=== PATIENT | female | born 1985 | race African-American/Black ===

== ENCOUNTER 2020-10-12 10:39 | Emergency (ER) | payer MEDICAID, SELFPAY ==
--- NOTE | ~2020-10-12 | US_ITS ---
EXAMINATION: US ABDOMEN LIMITED CLINICAL INFORMATION: Right upper quadrant pain. COMPARISON: None TECHNIQUE: Real-time imaging of the right upper quadrant abdominal viscera. FINDINGS: PANCREAS: Pancreas is normal in size and contour and echogenicity. There is no pancreatic ductal distention or retroperitoneal effusion. LIVER: The liver is within normal size and smooth in contour. The parenchyma is normal in echogenicity and homogeneous. There is no parenchymal lesion or intrahepatic ductal dilatation. GALLBLADDER: Normal. The gallbladder is physiologically distended without evidence of stones, sludge, polyps, wall thickening or pericholecystic fluid. Negative sonographic Rosales's sign. COMMON BILE DUCT: Normal in caliber measuring 0.3 cm in diameter. RIGHT KIDNEY: Normal. No hydronephrosis. No renal calculi or focal parenchymal lesions. The kidney measures 11.8 cm in maximum dimension. FREE FLUID: None. US/US abdomen limited IMPRESSION: Normal study.
--- NOTE | ~2020-10-12 | US_ITS ---
EXAMINATION: US OBSTETRICAL ULTRASOUND CLINICAL INFORMATION: Lower abdominal pain. Positive test. COMPARISON: None. LMP: 08/08/2020. Gestational age by maternal dates is 9 weeks and 2 days. Estimated date of delivery by maternal dates is 05/15/2021. TECHNIQUE: Routine transabdominal pelvic imaging was performed. FINDINGS: There is a single intrauterine gestational sac with visible yolk sac, embryo/fetus, and cardiac activity. There is no significant subchorionic hemorrhage or hematoma. The gestational sac is low-lying in the lower uterine segment. There is no vaginal bleeding hence, no transvaginal ultrasound performed. HR: 170 beats per minute. CRL (crown-rump length): 2.48 cm . MAXWELL (estimated date of delivery): 05/15/2021. MATERNAL ADNEXA: The right maternal ovary measures 2.9 x 1.7 x 1.6 cm. It appears unremarkable. The left maternal ovary measures 4.9 x 2.5 x 2.8 cm. There is an anechoic cyst measuring 2.2 x 2.0 x 2.4 cm. There is no significant maternal adnexal mass. No maternal pelvic ascites. US/US OB <= 14 weeks fetus IMPRESSION: 1. Single intrauterine gestation with ultrasound gestational age of 9 weeks and 2 days. 2. Estimated date of delivery is 05/15/2021 +/- 4 days. 3. No maternal adnexal mass or pelvic ascites.
[2020-10-12 10:53] VITALS: BP 126/59; PULSE 73; RESP 18; TEMP 37.1; O2SAT 98; BMI 34.3
--- NOTE | 2020-10-12 12:24 | ED_ITS ---
HPI - Abdominal Pain General Chief Complaint: Abdominal Pain Stated Complaint: Abd pain/ 2 and a half months Time Seen by Provider: 10/12/20 12:21 Source: patient Mode of arrival: ambulatory Limitations: no limitations History of Present Illness MD elicited complaint: abdominal pain Onset (ago): week(s) (2) Pain Consistency: intermittent Location: RUQ Severity: mild Quality: cramping Radiation: none Migration to: no migration Exacerbating factors: movement Relieving factors: nothing Context: other (also found out she was yesterday at [facility]) Associated symptoms: nausea Related Data Previous Rx's Medication Instructions Recorded nitrofurantoin 100 mg PO BID 7 Days #14 cap 10/12/20 monohydrate/macrocrystals 100 mg capsule (Macrobid) Allergies Allergy/AdvReac Type Severity Reaction Status Date / Time No Known Allergies Allergy Verified 10/12/20 10:52 [No Known Allergies*] Review of Systems Review of Systems Constitutional : No Weight loss, No Fever, No Chills ENT/Mouth : No sore throat, No Rhinorrhea Eyes: No Swelling, No Redness Cardiovascular : No Chest Pain, No SOB, NoEdema Respiratory : No Cough, No Sputum, No Wheezing Gastrointestinal : pos Nausea, no Vomiting, no Diarrhea, positive abdominal Pain, No Hematochezia, No Melena Genitourinary : No Dysuria, No Urinary Frequency, No Hematuria, No Urgency Musculoskeletal : No joint pain, No Myalgias, No Joint Swelling Skin : No Skin Lesions, No rash Neuro : No Weakness, No Numbness, No Dizziness, No Headache Psych : No Anxiety/Panic, No Depression Heme/Lymph: No Bruising, No Lymphadenopathy Endocrine : No Polyuria, No Polydipsia All other systems reviewed and are negative. Physical Exam Vital Signs: Vital Signs: Last Vital Signs Temp 98.7 F 10/12/20 10:53 Pulse 55 10/12/20 12:56 Resp 18 10/12/20 12:56 BP 115/63 10/12/20 12:56 Pulse Ox 95 10/12/20 12:56 Body Mass Index 34.3 Appearance: Alert. Oriented X3. No acute distress. Eyes: Pupils equal, round and reactive to light. ENT: Pharynx normal. Neck: Normal inspection. Neck supple. CVS: Normal heart rate and rhythm. Pulses normal. Respiratory: No respiratory distress. Breath sounds normal. Abdomen: Soft and mild RUQ ttp pos ray's sign but no rebound or guarding Skin: Skin warm and dry. Normal skin color. Normal skin turgor. Extremities: No lower extremity edema. No calf ttp Neuro: Oriented X 3. No motor deficit. No sensory deficit. Course Course Course Narrative: patient left prior to US results states she has to leave, will call with any abnormalities MDM - Abdominal Pain MDM Narrative Medical decision making narrative: 35 yo female here with RUQ pain and some lower abdominal cramping mild nausea at this time just found out she was yesterday will need labs, GB US, OB US to evaluate for ectopic, UA, dispo per results and findings, she does not have an acute abdomen, doubt appendicitis, no RLQ ttp Lab Data Result diagrams: 10/12/20 12:55 10/12/20 12:55 Labs: Lab Results 10/12/20 10/12/20 10/12/20 Range/Units 12:55 12:55 13:45 WBC 9.7 (4.8-10.8) X10*3/uL RBC 3.78 L (4.20-5.50) X10*6/uL Hgb 10.2 L (12.0-16.0) g/dl Hct 32.3 L (37-47) % MCV 85.4 (80-98) fL MCH 27.0 (27.0-33.0) pg MCHC 31.6 (31.0-35.0) g/dl RDW 15.4 (11.0-16.0) % Plt Count 335 (160-400) X10*3/uL MPV 9.5 (9.4-12.3) fL Immature Gran % (Auto) 0.4 (0.0-0.4) % Neut % (Auto) 63.9 (45-73) % Lymph % (Auto) 24.8 (20-40) % Bollinger % (Auto) 8.1 (2-11) % Eos % (Auto) 2.4 (0-4) % Baso % (Auto) 0.4 (0-2) % Lymph # (Auto) 2.4 (1.2-4.9) X10*3/uL Bollinger # (Auto) 0.8 (0.1-1.2) X10*3/uL Eos # (Auto) 0.2 (0.0-0.4) X10*3/uL Baso # (Auto) 0.0 (0.0-0.2) X10*3/uL Abs Immat Gran (auto) 0.04 H (0.00-0.03) X10*3/uL Absolute Neuts (auto) 6.2 (2.0-8.3) X10*3/uL Absolute Nucleated RBC 0.000 (0.0-0.012) X10*3/uL Nucleated RBC % (auto) 0.0 (0.0-0.2) /100WBC Sodium 136 (135-145) mmol/L Potassium 4.1 (3.3-5.1) mmol/L Chloride 105 (96-108) mmol/L Carbon Dioxide 25 (22-29) mmol/L Anion Gap 10 L (12-20) BUN 7 L (9-16) mg/dL Creatinine 0.60 (0.5-1.4) mg/dL Estim Creat Clear Calc 144.1 Estimated GFR > 60 Random Glucose 88 (60-115) mg/dL Calcium 8.9 (8.4-10.2) mg/dL Magnesium 2.0 (1.6-2.6) mg/dL Total Bilirubin 0.2 (0.0-1.0) mg/dL Direct Bilirubin < 0.2 (0.0-0.5) mg/dL AST 13 (5-31) U/L ALT 13 (0-31) U/L Alkaline Phosphatase 84 (39-117) U/L Total Protein 6.9 (6.5-8.0) g/dL Albumin 3.8 (3.5-5.0) g/dL Lipase 9 (8-78) U/L Beta HCG, Quant 49438 mIU/mL Urine Color YELLOW Urine Appearance HAZY Urine pH 6.5 (5.0-8.0) Ur Specific [place] 1.020 (1.005-1.025) Urine Protein TRACE (NEG-TRACE) MG/DL Urine Glucose (UA) NEG (NEG) MG/DL Urine Ketones NEG (NEG) MG/DL Urine Blood 1+ H (NEG) Urine Nitrite NEG (NEG) Ur Leukocyte Esterase 1+ H (NEG) Urine RBC 5-9 H (0) /HPF Urine WBC 15-29 H (0-4) /HPF Ur Squamous Epith Cells 2+ /LPF Urine Bacteria 1+ /LPF Urine Mucus 2+ /LPF Discharge Plan Discharge Clinical Impression: UTI (urinary tract infection) Qualifiers: Urinary tract infection type: site unspecified Hematuria presence: without hematuria Qualified Code(s): N39.0 - Urinary tract infection, site not specified Abdominal pain Qualifiers: Abdominal location: right upper quadrant Qualified Code(s): R10.11 - Right upper quadrant pain Qualifiers: Weeks of gestation: 9 weeks Qualified Code(s): Z3A.09 - 9 weeks gestation of Patient Disposition: Home, Self-Care Instructions: Abdominal Pain in (ED), Urinary Tract Infection in (ED) Additional Instructions: return to ED for any worsening symptoms or concerns PLEASE FOLLOW UP WITH YOUR OBGYN YOU LEFT PRIOR TO THE FORMAL REPORTS BEING DONE OF YOUR US - DATES TODAY = 9WEEKS 2 DAYS Prescriptions: New nitrofurantoin monohyd/m-cryst [Macrobid] 100 mg capsule 100 mg PO BID 7 Days Qty: 14 RF: 0 PMFSH Past Medical History Attestation statement: The following information was validated with the patient. Medical History Multiparous Social History Social History (Updated 10/12/20 @ 12:35 by Kelsey Niño DO) Alcohol intake: never Patient Tobacco Use Status: Current everyday Tobacco user Use of substances other than those prescribed or required for medical reasons: Yes Substance Use Type: Other Substance Use Type Other:: pcp Substance Use Frequency: Occasionally Advance Directives: No Advance Directives Information Provided: Yes Patient : Yes
[2020-10-12 12:56] VITALS: BP 115/63; PULSE 55; RESP 18; O2SAT 95
[2020-10-12 13:03] LABS: MANUAL DIFF FLAG NO
[2020-10-12 13:07] LABS: Basophils Percent Auto 0.4 % (0-2); Eosinophils Absolute Auto 0.2 X10*3/uL (0.0-0.4); Eosinophils Percent Auto 2.4 % (0-4); Hematocrit 32.3 % (37-47); Hemoglobin 10.2 g/dl (12.0-16.0); Imm Gran Abs Auto 0.04 X10*3/uL (0.00-0.03); Imm Gran Pct Auto 0.4 % (0.0-0.4); Lymphocytes Absolute Auto 2.4 X10*3/uL (1.2-4.9); Lymphocytes Percent Auto 24.8 % (20-40); Mean Corpuscular HGB Conc 31.6 g/dl (31.0-35.0); Mean Corpuscular Volume 85.4 fL (80-98); Mean Platelet Volume 9.5 fL (9.4-12.3); Monocytes Absolute Auto 0.8 X10*3/uL (0.1-1.2); Monocytes Percent Auto 8.1 % (2-11); Neutrophils Absolute Auto 6.2 X10*3/uL (2.0-8.3); Neutrophils Percent Auto 63.9 % (45-73); Platelet Count 335 X10*3/uL (160-400); Red Blood Count 3.78 X10*6/uL (4.20-5.50); Red Cell Distribution Width 15.4 % (11.0-16.0); White Blood Count 9.7 X10*3/uL (4.8-10.8)
--- NOTE | 2020-10-12 13:07 | PC.NURSE ---
pt is currently refusing the iv fluids, states she does not feel like she is dehydrated
[2020-10-12 13:35] LABS: Alanine Aminotransferase 13 U/L (0-31); Albumin Level 3.8 g/dL (3.5-5.0); Alkaline Phosphatase 84 U/L (39-117); Anion Gap 10 (12-20); Aspartate Amino Transferase 13 U/L (5-31); Bilirubin Direct < 0.2 mg/dL (0.0-0.5); Bilirubin Total 0.2 mg/dL (0.0-1.0); Blood Urea Nitrogen 7 mg/dL (9-16); Calcium 8.9 mg/dL (8.4-10.2); Carbon Dioxide 25 mmol/L (22-29); Chloride 105 mmol/L (96-108); Creatinine Clr Calc Pharmacy 144.1; Estimated Glomerular Filt Rate > 60; Glucose Random 88 mg/dL (60-115); Lipase 9 U/L (8-78); Potassium 4.1 mmol/L (3.3-5.1); Sodium 136 mmol/L (135-145); Total Protein 6.9 g/dL (6.5-8.0)
[2020-10-12 14:06] LABS: Glucose Urine UA NEG (NEG); Leukocyte Esterase Urine 1+ (NEG); Nitrite Urine NEG (NEG); PH 6.5 (5.0-8.0); UACC Culture Trigger YES; Urine Blood 1+ (NEG); Urine Ketones NEG (NEG); Urine Protein TRACE MG/DL (NEG-TRACE)
[2020-10-12 14:08] LABS: Appearance Urine HAZY; Color Urine YELLOW
[2020-10-12 14:18] LABS: Bacteria Urine 1+ /LPF; Mucus Urine 2+ /LPF; Squamous Epithelial Cell Urine 2+ /LPF
[2020-10-12] MEDS: Nitrofurantoin Monohyd/M-Cryst 100 MG CAPSULE PO (15:39)
== END 2020-10-12 15:41 | disposition home or self-care (01) ==
PROVIDERS: Emergency Provider Emergency Medicine
DX: O23.41 Unspecified infection of urinary tract in pregnancy, first trimester (principal); R10.11 Right upper quadrant pain; Z3A.09 9 weeks gestation of pregnancy; Z79.899 Other long term (current) drug therapy
CPT/HCPCS: 36415; 76705; 76801; 80048; 80076; 81001; 81003; 83690; 83735; 84702; 85025; 87086; 99284

== ENCOUNTER → 2020-10-18 10:46 | Outpatient (BNVA) | payer MEDICAID, SELFPAY | PROVIDERS: Visit Provider Advanced Practice Midwife | DX: N92.6 Irregular menstruation, unspecified (principal) | CPT/HCPCS: 81025; 99202 ==

== ENCOUNTER 2020-10-19 11:14 | Emergency (ER) | payer MEDICAID, SELFPAY | END 2020-10-19 11:34 | disposition left against medical advice (07) | PROVIDERS: Emergency Provider Emergency Medicine | DX: R69 Illness, unspecified (principal) ==

== ENCOUNTER 2020-10-19 11:25 | Outpatient (REF) | payer MEDICAID, SELFPAY | END 2020-10-19 11:26 | disposition home or self-care (01) | LOC: HO.LAB 11:25 | PROVIDERS: PCP Internal Medicine; Visit Provider Internal Medicine | DX: Z20.822 Contact with and (suspected) exposure to COVID-19 (principal) | CPT/HCPCS: C9803; U0003; U0005 ==

== ENCOUNTER → 2020-11-10 12:58 | Outpatient (BNVA) | payer MEDICAID, SELFPAY | PROVIDERS: PCP Internal Medicine; Visit Provider Advanced Practice Midwife | DX: O09.522 Supervision of elderly multigravida, second trimester (principal); O09.292 Supervision of pregnancy with other poor reproductive or obstetric history, second trimester; Z3A.14 14 weeks gestation of pregnancy | CPT/HCPCS: 99212 ==

== ENCOUNTER 2020-12-08 11:48 | Emergency (ER) | payer MEDICAID, SELFPAY ==
[2020-12-08 12:15] VITALS: BP 124/71; PULSE 85; RESP 18; TEMP 36.9; O2SAT 98; BMI 40.3
[2020-12-08 12:24] LABS: COVID-19 Test Negative (Negative)
--- NOTE | 2020-12-08 12:55 | ED.GENADULT ---
HPI - General Adult General Chief complaint: General Medical Stated complaint: abd pain, flu like symptoms, Time Seen by Provider: 12/08/20 12:55 Source: patient Mode of arrival: ambulatory Limitations: no limitations History of Present Illness HPI narrative: Patient 4 months 10 para 7 noticed that since yesterday not able to feel baby move feel nauseated vomited 2 times today no vaginal bleeding feeling uncomfortable in the upper abdomen no pain in the lower abdomen area no fever no chills patient received COVID vaccination few days ago Related Data Previous Rx's Medication Instructions Recorded nitrofurantoin 100 mg PO BID 7 Days #14 cap 10/12/20 monohydrate/macrocrystals 100 mg capsule (Macrobid) vitamins with calcium 1 tab PO DAILY 30 Days #30 tab 11/10/20 no.72-iron 29 mg-folic acid 1 mg tablet ( Plus) nitrofurantoin 100 mg PO BID #20 cap 12/08/20 monohydrate/macrocrystals 100 mg capsule (Macrobid) ondansetron 4 mg disintegrating 4 mg PO Q6-8H PRN #7 tab 12/08/20 tablet Allergies Allergy/AdvReac Type Severity Reaction Status Date / Time No Known Allergies Allergy Verified 10/18/20 11:07 [No Known Allergies*] Review of Systems Review of Systems: Yes all other systems are reviewed and are negative PMF Past Medical History Medical History AMA (advanced maternal age) multigravida 35+ Grand multiparity with current Multiparous Family History Family History Mother Diabetes mellitus Father No problems noted. Maternal Grandmother No problems noted. Paternal Grandfather No problems noted. Paternal Grandmother No problems noted. Paternal Grandfather No problems noted. Social History Social History Household Members Other:: Self Housing: Apartment Are you a primary hospice spiritual care coordinator to a significant other at home: No Do you presently have visiting nurse or other home services: No Alcohol intake: never Patient Tobacco Use Status: Former Tobacco user Agree to transfusion: Yes Advance Directives: No Patient : Yes service: No Current occupational status: unemployed Physical Exam Vital Signs: Vital Signs: Last Vital Signs Temp 98.5 F 12/08/20 12:15 Pulse 85 12/08/20 12:15 Resp 18 12/08/20 12:15 BP 124/71 12/08/20 12:15 Pulse Ox 98 12/08/20 12:15 Body Mass Index 40.3 Appearance: Alert. Oriented X3. No acute distress. Anxious Eyes: No pallor or icterus ENT: Pharynx normal. Oral Mucosa moist Neck: Normal inspection. Neck supple. CVS: Normal heart rate and rhythm. Pulses normal. Respiratory: No respiratory distress. Equal air entry bilateral, Abdomen: Soft and nontender. Bowel sounds are present, no mass palpable, no CVA tenderness Skin: Skin warm and dry. Normal skin color. Normal skin turgor. Extremities: No lower extremity edema. No calf tenderness Neuro: Oriented X 3. 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 the prescription from pharmacy Lab Data Labs: Lab Results 12/08/20 12/08/20 Range/Units 11:57 13:22 Urine Color YELLOW Urine Appearance CLOUDY Urine pH 6.0 (5.0-8.0) Ur Specific [place] <= 1.005 (1.005-1.025) Urine Protein NEG (NEG-TRACE) MG/DL Urine Glucose (UA) NEG (NEG) MG/DL Urine Ketones 40 (NEG) MG/DL Urine Blood 1+ H (NEG) Urine Nitrite NEG (NEG) Ur Leukocyte Esterase 3+ H (NEG) Urine RBC 5-9 H (0) /HPF Urine WBC 30-49 H (0-4) /HPF Ur Squamous Epith Cells 4+ /LPF Urine Bacteria 2+ /LPF COVID-19 (KACEY) Negative (Negative) COVID-19 Clin Com See Note Discharge Plan Discharge Clinical Impression: UTI (urinary tract infection) Qualifiers: Urinary tract infection type: acute cystitis Hematuria presence: without hematuria Qualified Code(s): N30.00 - Acute cystitis without hematuria Patient Disposition: Home, Self-Care Instructions: Urinary Tract Infection in (ED) Additional Instructions: Drink plenty of fluids and take antibiotic as prescribed Prescriptions: New nitrofurantoin monohyd/m-cryst [Macrobid] 100 mg capsule 100 mg PO BID Qty: 20 RF: 0 ondansetron 4 mg tablet,disintegrating 4 mg PO Q6-8H PRN (Reason: nausea and vomiting) Qty: 7 RF: 0 No Action Plus 29 mg iron- 1 mg tablet 1 tab PO DAILY 30 Days Qty: 30 RF: 11 nitrofurantoin monohyd/m-cryst [Macrobid] 100 mg capsule 100 mg PO BID 7 Days Qty: 14 RF: 0
[2020-12-08 13:37] LABS: Appearance Urine CLOUDY; Color Urine YELLOW; Glucose Urine UA NEG (NEG); Nitrite Urine NEG (NEG); Specific Gravity - Urine <= 1.005 (1.005-1.025); Urine Blood 1+ (NEG); Urine Ketones 40 MG/DL (NEG); Urine Protein NEG (NEG-TRACE)
[2020-12-08 13:39] LABS: Leukocyte Esterase Urine 3+ (NEG); UACC Culture Trigger YES
[2020-12-08 13:49] LABS: Bacteria Urine 2+ /LPF; Squamous Epithelial Cell Urine 4+ /LPF; WBC Urine 30-49 /HPF (0-4)
--- NOTE | 2020-12-08 14:04 | PC.NURSE ---
pt left room, dr benavides called pt and discussed results and rx sent
== END 2020-12-08 14:05 | disposition home or self-care (01) ==
PROVIDERS: Emergency Provider Internal Medicine
DX: O23.12 Infections of bladder in pregnancy, second trimester (principal); N30.00 Acute cystitis without hematuria; Z3A.16 16 weeks gestation of pregnancy; Z79.899 Other long term (current) drug therapy
CPT/HCPCS: 36415; 81001; 87086; 87635; 99283

== ENCOUNTER 2021-06-22 21:38 | Emergency (ER) | payer MEDICAID, SELFPAY ==
[2021-06-22 21:45] VITALS: BP 147/67; PULSE 114; O2SAT 97
[2021-06-22 22:19] VITALS: BMI 23.3
--- NOTE | 2021-06-22 22:36 | PC.NURSE ---
pt has no recollection of events, is unsure why she is here. denies drug use, denies SI/HI
--- NOTE | 2021-06-22 22:39 | PC.NURSE ---
pt given gingerale
--- NOTE | 2021-06-22 23:20 | ED.AMS ---
HPI - Altered Mental Status General Chief Complaint: Altered Mental Status Stated Complaint: drug use Time Seen by Provider: 06/22/21 22:59 Source: patient and EMS Mode of arrival: EMS Limitations: no limitations History of Present Illness HPI narrative: Patient comes to the emergency room by EMS. Earlier today, patient was on the street, patient flagged down police department, patient seemed altered, confused, calm and cooperative. Patient was brought to the emergency room. When patient arrived to emergency room, patient states that she does not recall flying down the police, patient is alert and oriented x4, no acute distress. Patient states that she does not do any drugs Related Data Allergies Allergy/AdvReac Type Severity Reaction Status Date / Time No Known Allergies Allergy Verified 10/18/20 11:07 [No Known Allergies*] Review of Systems Review of Systems: Constitutional : No Weight loss, No Fever, No Chills, No Night Sweats, No Fatigue, No Malaise ENT/Mouth : No Hearing loss, No Ear Pain, No Nasal Congestion, No Sinus Pain, No Hoarseness, No sore throat, No Rhinorrhea, No Swallowing Difficulty Eyes: No Eye Pain, No Swelling, No Redness, No Foreign Body, No Discharge, No Vision Changes Cardiovascular : No Chest Pain, No SOB, No Dyspnea on Exertion, No Orthopnea, No Edema, No Palpitations Respiratory : No Cough, No Sputum, No Wheezing, No Smoke Exposure, No Dyspnea Gastrointestinal : No Nausea, No Vomiting, No Diarrhea, No Constipation, No abdominal Pain, No Hematochezia, No Melena Genitourinary : no irregular bleeding, No Dysuria, No Urinary Frequency, No Hematuria, No Urinary Incontinence, No Urgency, No Flank Pain, No Urinary Flow Changes, No Hesitancy Musculoskeletal : No joint pain, No Myalgias, No Joint Swelling Skin : No Skin Lesions, No rash Neuro : No Weakness, No Numbness, No Paresthesias, No Loss of Consciousness, No Dizziness, No Headache Psych : No Anxiety/Panic, No Depression, No SI/HI/AH/VH, No Social Issues, states that she does not remember recent events just prior to arrival, drug use Heme/Lymph: No Bruising, No Bleeding,No Lymphadenopathy Endocrine : No Polyuria, No Polydipsia, No Temperature Intolerance PMFSH Past Medical History Medical History AMA (advanced maternal age) multigravida 35+ Grand multiparity with current Multiparous Family History Family History Mother Diabetes mellitus Father No problems noted. Maternal Grandmother No problems noted. Paternal Grandfather No problems noted. Paternal Grandmother No problems noted. Paternal Grandfather No problems noted. Social History Social History Household Members Other:: Self Housing: Apartment Are you a primary urgent care physician assistant to a significant other at home: No Do you presently have visiting nurse or other home services: No Alcohol intake: never Patient Tobacco Use Status: Former Tobacco user Agree to transfusion: Yes Advance Directives: No Advance Directives Information Provided: No service: No Current occupational status: unemployed Physical Exam ED Vital Signs: BMI result Body Mass Index 23.3 Const Other: Appearance: Alert. Oriented X3. No acute distress. Eyes: Pupils equal, round and reactive to light. ENT: Pharynx normal. Neck: Normal inspection. Neck supple. No lymph nodes noted. No crepitus CVS: Normal heart rate and rhythm. Pulses normal. Normal S1 and S2 Respiratory: No respiratory distress. Breath sounds normal. No Wheezing. No rales Abdomen: Soft and nontender. No rigidity. No distention. Skin: Skin warm and dry. Normal skin color. Normal skin turgor. Extremities: No lower extremity edema. No Lacerations. No Rash Neuro: Oriented X 3. No motor deficit. No sensory deficit. Moving all extremities. No slurred speech. CN 2 through 12 grossly intact Psych: calm, cooperative, normal affect Course Course Course Narrative: Patient is alert and oriented x4, steady gait, clinically sober, calm and cooperative. Patient states she did not use any drugs. However, patient does have history of using PCP. I offered to the patient and a full workup, since she came she did not use any drugs. Patient declined, patient requesting to be discharged. Discharge Plan Discharge Clinical Impression: Altered mental status Patient Disposition: Home, Self-Care Instructions: Altered Mental Status (ED)
== END 2021-06-22 23:38 | disposition home or self-care (01) ==
PROVIDERS: Emergency Provider Emergency Medicine
DX: R41.82 Altered mental status, unspecified (principal); Z87.891 Personal history of nicotine dependence
CPT/HCPCS: 99282; 99284

== ENCOUNTER 2022-07-06 19:50 | Emergency (ER) | payer MEDICAID, SELFPAY ==
--- NOTE | ~2022-07-06 | US_ITS ---
EXAMINATION: US OBSTETRICAL ULTRASOUND CLINICAL INFORMATION: Abdominal pain. LMP unsure. COMPARISON: 10/12/2020. TECHNIQUE: Transabdominal and transvaginal images obtained with the patient's consent. FINDINGS: There is a single intrauterine embryo/fetus. There is no significant subchorionic hemorrhage or hematoma. There is a 2 x 1.8 x 1.6 cm posterior intramural uterine lesion, likely representing a fibroid. HR: 155 beats per minute. CRL (crown rump length): 6.58 cm (13 weeks and 0 days +/- 4 days). MAXWELL (estimated date of delivery): 01/11/2023 +/- 4 days. MATERNAL ADNEXA: The right maternal ovary measures 2.4 x 1.3 x 2 cm. The left maternal ovary measures 3.1 x 1.6 x 2.5 cm. There is a 1.7 cm corpus luteal cyst. There is no significant maternal adnexal mass. No maternal pelvic ascites. US/US OB <= 14 weeks fetus IMPRESSION: 1. Single live intrauterine gestation corresponding to a sonographic age of 13 weeks, MAXWELL 01/11/2023. This examination was not targeted for assessment of the anatomy or congenital malformations, for which OB control is recommended. 2. No acute sonographic abnormalities. 3. Incidentally noted 2 cm posterior intramural uterine lesion, statistically favored to represent a fibroid.
[2022-07-06 20:00] VITALS: BP 118/64; PULSE 68; RESP 16; TEMP 37.2; O2SAT 99; BMI 27.4
--- NOTE | 2022-07-06 20:03 | ED_ITS ---
HPI - General Adult General Chief complaint: Abdominal Pain <GARY Wallace - Last Filed: 07/06/22 20:09> Stated complaint: abd pain <GARY Wallace - Last Filed: 07/06/22 20:09> Time Seen by Provider: 07/06/22 22:12 <GARY Wallace - Last Filed: 07/06/22 20:09> Source: patient <Samantha Gilbert MD - Last Filed: 07/06/22 22:31> Mode of arrival: ambulatory <Samantha Gilbert MD - Last Filed: 07/06/22 22:31> Limitations: no limitations <Samantha Gilbert MD - Last Filed: 07/06/22 22:31> History of Present Illness HPI narrative: Patient is a at approximately 13 weeks of gestational age, comes to emergency room complaining of abdominal cramping. Patient denies nausea vomiting diarrhea, no vaginal discharge, bleeding or fluid leakage. <Samantha Gilbert MD - Last Filed: 07/06/22 22:31> Related Data Home medications: Previous Rx's Medication Instructions Recorded acetaminophen 500 mg capsule 500 mg PO QID PRN fever or pain 07/06/22 #30 caps <GARY Wallace - Last Filed: 07/06/22 20:09> Allergies/adverse reactions: Allergies Allergy/AdvReac Type Severity Reaction Status Date / Time No Known Allergies Allergy Verified 10/18/20 11:07 [No Known Allergies*] <GARY Wallace - Last Filed: 07/06/22 20:09> Review of Systems Review of Systems: Constitutional : No Weight loss, No Fever, No Chills, No Night Sweats, No Fatigue, No Malaise ENT/Mouth : No Hearing loss, No Ear Pain, No Nasal Congestion, No Sinus Pain, No Hoarseness, No sore throat, No Rhinorrhea, No Swallowing Difficulty Eyes: No Eye Pain, No Swelling, No Redness, No Foreign Body, No Discharge, No Vision Changes Cardiovascular : No Chest Pain, No SOB, No Dyspnea on Exertion, No Orthopnea, No Edema, No Palpitations Respiratory : No Cough, No Sputum, No Wheezing, No Smoke Exposure, No Dyspnea Gastrointestinal : No Nausea, No Vomiting, No Diarrhea, No Constipation, No abdominal Pain, No Hematochezia, No Melena Genitourinary : Complaining of abdominal cramping, no irregular bleeding, No Dysuria, No Urinary Frequency, No Hematuria, No Urinary Incontinence, No Urgency, No Flank Pain, No Urinary Flow Changes, No Hesitancy Musculoskeletal : No joint pain, No Myalgias, No Joint Swelling Skin : No Skin Lesions, No rash Neuro : No Weakness, No Numbness, No Paresthesias, No Loss of Consciousness, No Dizziness, No Headache Psych : No Anxiety/Panic, No Depression, No SI/HI/AH/VH, No Social Issues, Heme/Lymph: No Bruising, No Bleeding,No Lymphadenopathy Endocrine : No Polyuria, No Polydipsia, No Temperature Intolerance <Samantha Gilbert MD - Last Filed: 07/06/22 22:31> [facility] Past Medical History Medical History: Medical History AMA (advanced maternal age) multigravida 35+ Grand multiparity with current Multiparous <GARY Wallace - Last Filed: 07/06/22 20:09> Family History Family History: Family History Mother Diabetes mellitus Father No problems noted. Maternal Grandmother No problems noted. Paternal Grandfather No problems noted. Paternal Grandmother No problems noted. Paternal Grandfather No problems noted. <GARY Wallace - Last Filed: 07/06/22 20:09> Social History Social History: Social History Household Members Other:: Self Housing: Apartment Are you a primary prompt care rn to a significant other at home: No Do you presently have visiting nurse or other home services: No Alcohol intake: never Patient Tobacco Use Status: Former Tobacco user Agree to transfusion: Yes Advance Directives: No Advance Directives Information Provided: Yes service: No Current occupational status: unemployed <GARY Wallace - Last Filed: 07/06/22 20:09> Physical Exam ED Vital Signs: Vital Signs - 24 hr 07/06/22 20:00 07/06/22 21:56 Temperature 99.0 F Pulse Rate 68 65 Respiratory Rate 16 16 Blood Pressure 118/64 100/63 Pulse Oximetry 99 96 Oxygen Delivery Method Room Air Room Air BMI result Body Mass Index 27.4 <GARY Wallace - Last Filed: 07/06/22 20:09> Vital Signs - 24 hr 07/06/22 20:00 07/06/22 21:56 Temperature 99.0 F Pulse Rate 68 65 Respiratory Rate 16 16 Blood Pressure 118/64 100/63 Pulse Oximetry 99 96 Oxygen Delivery Method Room Air Room Air BMI result Body Mass Index 27.4 <Samantha Gilbert MD - Last Filed: 07/06/22 22:31> Const Other: Appearance: Alert. Oriented X3. No acute distress. Eyes: Pupils equal, round and reactive to light. ENT: Pharynx normal. Neck: Normal inspection. Neck supple. No lymph nodes noted. No crepitus CVS: Normal heart rate and rhythm. Pulses normal. Normal S1 and S2 Respiratory: No respiratory distress. Breath sounds normal. No Wheezing. No rales Abdomen: Soft and nontender. No rigidity. No distention. Skin: Skin warm and dry. Normal skin color. Normal skin turgor. Extremities: No lower extremity edema. No Lacerations. No Rash Neuro: Oriented X 3. No motor deficit. No sensory deficit. Moving all extremities. No slurred speech. CN 2 through 12 grossly intact Psych: calm, cooperative, normal affect <Samantha Gilbert MD - Last Filed: 07/06/22 22:31> Course Course Course Narrative: This is an RME: Additional HPI, ROS, PE not included below will be deferred to primary provider. This is a 37-year-old female,, who is 3 months , presents emergency department today with complaints severe abdominal pain since today. Patient denies any vaginal bleeding or discharge. Patient has not had any pre- care for this . LMP sometime in april. Plan: Labs, UA, beta quant and us ordered. <GARY Wallace - Last Filed: 07/06/22 20:09> Medical Decision Making Medical Decision Making MDM Narrative: -patient's physical exam unremarkable, abdominal physical exam is unremarkable other than a gravid uterus, patient walking around the emergency room -patient given 1 dose of p.o. Tylenol -discussed with the patient the ultrasound shows no intrauterine at approximately 13 weeks of gestational age. Discussed with the patient that the ultrasound was not done to identify anatomy on the baby. This needs to be done through the OB Gyne. -patient did not provide a urine sample <Samantha Gilbert MD - Last Filed: 07/06/22 22:31> Differential Diagnosis Differential Diagnoses: The differential diagnosis associated with the presentation includes (Abdominal cramping, dyspepsia, threatened ) <Samantha Gilbert MD - Last Filed: 07/06/22 22:31> Lab Data MDM Lab Attestation statement: I reviewed the patient's lab results. <Samantha Gilbert MD - Last Filed: 07/06/22 22:31> Result Diagrams: 07/06/22 20:24 07/06/22 20:24 <GARY Wallace - Last Filed: 07/06/22 20:09> Labs: Lab Results 07/06/22 07/06/22 Range/Units 20:24 20:24 WBC 9.3 (4.8-10.8) X10*3/uL RBC 3.37 L (4.20-5.50) X10*6/uL Hgb 9.8 L (12.0-16.0) g/dl Hct 30.1 L (37.0-47.0) % MCV 89.3 (80.0-98.0) fL MCH 29.1 (27.0-33.0) pg MCHC 32.6 (31.0-35.0) g/dl RDW 13.9 (11.0-16.0) % Plt Count 262 (160-400) X10*3/uL MPV 9.9 (9.4-12.3) fL Immature Gran % (Auto) 0.3 (0.0-0.4) % Neut % (Auto) 56.8 (45-73) % Lymph % (Auto) 32.3 (20-40) % Jerome % (Auto) 6.3 (2-11) % Eos % (Auto) 3.9 (0-4) % Baso % (Auto) 0.4 (0-2) % Lymph # (Auto) 3.0 (1.2-4.9) X10*3/uL Jerome # (Auto) 0.6 (0.1-1.2) X10*3/uL Eos # (Auto) 0.4 (0.0-0.4) X10*3/uL Baso # (Auto) 0.0 (0.0-0.2) X10*3/uL Abs Immat Gran (auto) 0.03 (0.00-0.03) X10*3/uL Absolute Neuts (auto) 5.3 (2.0-8.3) x10*3/uL Absolute Nucleated RBC 0.000 (0.0-0.012) X10*3/uL Nucleated RBC % (auto) 0.0 (0.0-0.2) /100WBC Sodium 140 (135-145) mmol/L Potassium 3.8 (3.3-5.1) mmol/L Chloride 107 (96-108) mmol/L Carbon Dioxide 24 (22-29) mmol/L Anion Gap 13 (12-20) BUN 7 L (9-16) mg/dL Creatinine 0.57 (0.5-1.4) mg/dL Estim Creat Clear Calc 128.3 Estimated GFR > 60 Random Glucose 103 (60-115) mg/dL Calcium 8.7 (8.4-10.2) mg/dL Magnesium 1.7 (1.6-2.6) mg/dL Total Bilirubin 0.2 (0.0-1.0) mg/dL Direct Bilirubin < 0.2 (0.0-0.5) mg/dL AST 10 (5-31) U/L ALT 11 (0-31) U/L Alkaline Phosphatase 60 (39-117) U/L Total Protein 5.9 L (6.5-8.0) g/dL Albumin 3.3 L (3.5-5.0) g/dL Lipase 11 (8-78) U/L Beta HCG, Quant 44996 mIU/mL <GARY Wallace - Last Filed: 07/06/22 20:09> Lab Results 07/06/22 07/06/22 Range/Units 20:24 20:24 WBC 9.3 (4.8-10.8) X10*3/uL RBC 3.37 L (4.20-5.50) X10*6/uL Hgb 9.8 L (12.0-16.0) g/dl Hct 30.1 L (37.0-47.0) % MCV 89.3 (80.0-98.0) fL MCH 29.1 (27.0-33.0) pg MCHC 32.6 (31.0-35.0) g/dl RDW 13.9 (11.0-16.0) % Plt Count 262 (160-400) X10*3/uL MPV 9.9 (9.4-12.3) fL Immature Gran % (Auto) 0.3 (0.0-0.4) % Neut % (Auto) 56.8 (45-73) % Lymph % (Auto) 32.3 (20-40) % Jerome % (Auto) 6.3 (2-11) % Eos % (Auto) 3.9 (0-4) % Baso % (Auto) 0.4 (0-2) % Lymph # (Auto) 3.0 (1.2-4.9) X10*3/uL Jerome # (Auto) 0.6 (0.1-1.2) X10*3/uL Eos # (Auto) 0.4 (0.0-0.4) X10*3/uL Baso # (Auto) 0.0 (0.0-0.2) X10*3/uL Abs Immat Gran (auto) 0.03 (0.00-0.03) X10*3/uL Absolute Neuts (auto) 5.3 (2.0-8.3) x10*3/uL Absolute Nucleated RBC 0.000 (0.0-0.012) X10*3/uL Nucleated RBC % (auto) 0.0 (0.0-0.2) /100WBC Sodium 140 (135-145) mmol/L Potassium 3.8 (3.3-5.1) mmol/L Chloride 107 (96-108) mmol/L Carbon Dioxide 24 (22-29) mmol/L Anion Gap 13 (12-20) BUN 7 L (9-16) mg/dL Creatinine 0.57 (0.5-1.4) mg/dL Estim Creat Clear Calc 128.3 Estimated GFR > 60 Random Glucose 103 (60-115) mg/dL Calcium 8.7 (8.4-10.2) mg/dL Magnesium 1.7 (1.6-2.6) mg/dL Total Bilirubin 0.2 (0.0-1.0) mg/dL Direct Bilirubin < 0.2 (0.0-0.5) mg/dL AST 10 (5-31) U/L ALT 11 (0-31) U/L Alkaline Phosphatase 60 (39-117) U/L Total Protein 5.9 L (6.5-8.0) g/dL Albumin 3.3 L (3.5-5.0) g/dL Lipase 11 (8-78) U/L Beta HCG, Quant 87692 mIU/mL <Samantha Gilbert MD - Last Filed: 07/06/22 22:31> Radiology Impression Discussion of test interpretation with radiology: I have reviewed the radiologist's reading. <Samantha Gilbert MD - Last Filed: 07/06/22 22:31> Radiologist Impression: FINDINGS: There is a single intrauterine embryo/fetus. There is no significant subchorionic hemorrhage or hematoma. There is a 2 x 1.8 x 1.6 cm posterior intramural uterine lesion, likely representing a fibroid. HR:? 155 beats per minute. CRL (crown rump length): ? 6.58 cm (13 weeks and 0 days +/- 4 days). MAXWELL (estimated date of delivery):? 01/11/2023 +/- 4 days. ? MATERNAL ADNEXA: ? ? The right maternal ovary measures 2.4 x 1.3 x 2 cm. The left maternal ovary measures 3.1 x 1.6 x 2.5 cm.? There is a 1.7 cm corpus luteal cyst. There is no significant maternal adnexal mass.? No maternal pelvic ascites. US/US OB <= 14 weeks fetus IMPRESSION: 1.? Single live intrauterine gestation corresponding to a sonographic age of 13 weeks, MAXWELL 01/11/2023. This examination was not targeted for assessment of the anatomy or congenital malformations, for which OB control is recommended. 2.? No acute sonographic abnormalities. 3.? Incidentally noted 2 cm posterior intramural uterine lesion, statistically favored to represent a fibroid. <Samantha Gilbert MD - Last Filed: 07/06/22 22:31> Discharge Plan Discharge Clinical Impression: Abdominal cramping <GARY Wallace - Last Filed: 07/06/22 20:09> Patient Disposition: Home, Self-Care <GARY Wallace - Last Filed: 07/06/22 20:09> Instructions: Abdominal Pain (ED) <GARY Wallace - Last Filed: 07/06/22 20:09> Additional Instructions: Please follow-up with your primary care physician tomorrow. If you have any worsening or new symptoms, please return to the emergency room or call 911 <GARY Wallace - Last Filed: 07/06/22 20:09> Prescriptions: New acetaminophen 500 mg capsule 500 mg PO QID PRN (Reason: fever or pain) Qty: 30 0RF <GARY Wallace - Last Filed: 07/06/22 20:09>
[2022-07-06 20:29] LABS: MANUAL DIFF FLAG NO
[2022-07-06 20:53] LABS: Basophils Percent Auto 0.4 % (0-2); Eosinophils Absolute Auto 0.4 X10*3/uL (0.0-0.4); Eosinophils Percent Auto 3.9 % (0-4); Hematocrit 30.1 % (37.0-47.0); Hemoglobin 9.8 g/dl (12.0-16.0); Imm Gran Abs Auto 0.03 X10*3/uL (0.00-0.03); Imm Gran Pct Auto 0.3 % (0.0-0.4); Lymphocytes Percent Auto 32.3 % (20-40); Mean Corpuscular HGB Conc 32.6 g/dl (31.0-35.0); Mean Corpuscular Hemoglobin 29.1 pg (27.0-33.0); Mean Corpuscular Volume 89.3 fL (80.0-98.0); Mean Platelet Volume 9.9 fL (9.4-12.3); Monocytes Absolute Auto 0.6 X10*3/uL (0.1-1.2); Monocytes Percent Auto 6.3 % (2-11); Neutrophils Absolute Auto 5.3 x10*3/uL (2.0-8.3); Neutrophils Percent Auto 56.8 % (45-73); Platelet Count 262 X10*3/uL (160-400); Red Blood Count 3.37 X10*6/uL (4.20-5.50); Red Cell Distribution Width 13.9 % (11.0-16.0); White Blood Count 9.3 X10*3/uL (4.8-10.8)
[2022-07-06 20:57] LABS: Alanine Aminotransferase 11 U/L (0-31); Albumin Level 3.3 g/dL (3.5-5.0); Alkaline Phosphatase 60 U/L (39-117); Anion Gap 13 (12-20); Aspartate Amino Transferase 10 U/L (5-31); Bilirubin Direct < 0.2 mg/dL (0.0-0.5); Bilirubin Total 0.2 mg/dL (0.0-1.0); Blood Urea Nitrogen 7 mg/dL (9-16); Calcium 8.7 mg/dL (8.4-10.2); Carbon Dioxide 24 mmol/L (22-29); Chloride 107 mmol/L (96-108); Creatinine Clr Calc Pharmacy 128.3; Estimated Glomerular Filt Rate > 60; Glucose Random 103 mg/dL (60-115); Lipase 11 U/L (8-78); Magnesium 1.7 mg/dL (1.6-2.6); Potassium 3.8 mmol/L (3.3-5.1); Sodium 140 mmol/L (135-145); Total Protein 5.9 g/dL (6.5-8.0)
--- OUTSIDE RECORDS SUMMARY | 2022-07-06 21:16 | XMS_ITS | Continuity of Care Document ---
Author Name Unknown Organization [facility] Address [address] [place] [address]- Care Team Providers Care Customer Equipment Engineer Name Role Phone Not on Staff, PCP Primary Care Physician Unavail able [place] [facility] [place] 06/17/[address] [address]- Attending Physician: Park Gutierrez CNM Admitting Physician: Park Gutierrez CNM Allergies, Adverse Reactions, Alerts No Known Allergies Immunizations Given and Recorded Vaccine Date Status Refusal Reason tetanus/diphtheria/pertussis, acel(Tdap) 03/01/21 Given influenza virus vaccine, inactivated 03/01/21 Give n Medications aspirin 81 mg oral delayed release tablet 2 tablet = 162 mg, By Mouth, Daily, # 120 tablet, 4 Refills, Maintenance, 01/17/21 16:47:00 EST, CRTablet, [id number], Partial fill upon patient request if the prescription is for a scheduleII opioid drug., 102, cm, 01/17/21 16:16:00 EST, He... Start Date: 01/17/21 Status: Ordered Pina 0.35 mg oral tablet 1 tablet = 0.35 mg, By Mouth, Daily, # 90 tablet, 0 Refills, Maintenance, 05/10/21 9:27:00 EST, Tablet, [id number], Partial fill upon patient request if the prescription is for a schedule II opioid drug., 160, cm, 05/10/21 9:12:00 EST, Height,... Start Date: 05/10/21 Status: Ordered ferrous sulfate 325 mg oral tablet 1 tablet = 325 mg, By Mouth, Every other day, # 60 tablet, 1 Refills, Maintenance, 01/18/21 14:30:00 EST, [facility]acy #[id number], Partial fill upon patient request if the prescription is for a schedule II opioid drug., 162, cm, 01/17/21 16:16:00 EST, Heig... Start Date: 01/18/21 Stop Date: 09/15/21 Status: Ordered Prenatabs Rx oral tablet 1 tablet, By Mouth, Daily, # 90 tablet, 1 Refills, Maintenance, 03/30/21 17:23:00 EST, Tablet, [facility]/pharmacy #[id number], Partial fill upon patient request if the prescription is for a schedule II opioid drug., 1 tablet By Mouth Daily, 162, cm, 03/30/21 15:5... Start Date: 03/30/21 Status: Ordered Problem List Condition Effective Dates Status Health Status Inform ant Gonorrhea(Confirmed) Active Grand multiparity(Confirmed) Active History of depression(Confirmed) Active History of drug use(Confirmed) Active History of precipitous delivery(Confirmed) Active Trichomonosis(Confirmed) Active Insufficient care(Confirmed) Active AMA (advanced maternal age) multigravida 35+(Confirmed) Active Obese class II(Confirmed) Active Obesity in (Confirmed) Active PCP (phencyclidine) abuse(Confirmed) Active Phencyclidine (PCP) use diso rder, moderate(Confirmed) Active (Confirmed) Active Request for sterilization(Confirmed) Active Social History Social History Type Response Smoking Status Never smoker; Tobacc o user in household: No entered on: 08/25/17 Sex Female
--- OUTSIDE RECORDS SUMMARY | 2022-07-06 21:16 | XMS_ITS | Continuity of Care Document ---
Author Name Unknown Organization [facility] Address [address] [place] [phone]- Care Team Providers Care Security Compliance Engineer Name Role Phone Not on Staff, PCP Primary Care Physician Unavail able [place] [facility] [place] 03/[place]/[address] [id number] Allergies, Adverse Reactions, Alerts No Known Allergies Immunizations Given and Recorded Vaccine Date Status Refusal Reason tetanus/diphtheria/pertussis, acel(Tdap) 03/01/21 Given influenza virus vaccine, inactivated 03/01/21 Give n Medications aspirin 81 mg oral delayed release tablet 2 tablet = 162 mg, By Mouth, Daily, # 120 tablet, 4 Refills, Maintenance, 01/17/21 16:47:00 EST, CRTablet, [facility]/pharmacy #[id number], Partial fill upon patient request if the prescription is for a scheduleII opioid drug., 102, cm, 01/17/21 16:16:00 EST, He... Start Date: 01/17/21 Status: Ordered azithromycin 500 mg oral tablet 2 tablet = 1,000 mg, By Mouth, Once, # 2 tablet, 0 Refills, Soft Stop, 03/01/21 15:13:00 EST, Tablet, [id number], Partial fill upon patient request if the prescription is for a schedule II opioid drug., 162, cm, 03/01/21 14:50:00 EST, Height,... Start Date: 03/01/21 Status: Ordered ferrous sulfate 325 mg oral tablet 1 tablet = 325 mg, By Mouth, Every other day, # 60 tablet, 1 Refills, Maintenance, 01/18/21 14:30:00 EST, [id number], Partial fill upon patient request if the prescription is for a schedule II opioid drug., 162, cm, 01/17/21 16:16:00 EST, Heig... Start Date: 01/18/21 Stop Date: 09/15/21 Status: Ordered PNV oral tablet 1 tablet, By Mouth, Daily, # 90 tablet, 3 Refills, Maintenance, 01/17/21 17:20:00 EST, [facility]/pharmacy#[id number], Partial fill upon patient request if the prescription is for a schedule II opioid drug., 1 tablet By Mouth Daily, 162, cm, 01/17/21 16:16:00 EST... Start Date: 01/17/21 Status: Ordered Prenatabs Rx oral tablet 1 tablet, By Mouth, Daily, # 90 tablet, 0 Refills, Maintenance, 03/01/21 15:35:00 EST, Tablet, [facility]/pharmacy #[id number], Partial fill upon patient request if the prescription is for a schedule II opioid drug., 1 tablet By Mouth Daily, 162, cm, 03/01/21 14:5... Start Date: 03/01/21 Status: Ordered Problem List Condition Effective Dates Status Health Status Inform ant Obese class II(Confirmed) Active PCP (phencyclidine) abuse(Confirmed) Active Social History Social History Type Response Smoking Status Never smoker; Tobacc o user in household: No entered on: 08/25/17 Sex
--- OUTSIDE RECORDS SUMMARY | 2022-07-06 21:16 | XMS_ITS | Continuity of Care Document ---
Author Name Unknown Organization [facility] Address [address] [place] [phone]- Care Team Providers Care Oracle Ebs Consultant Name Role Phone Not on Staff, PCP Primary Care Physician Unavail able [place]counter [facility] [place] Date(s): 06/06/21 - 07/06/[address] [address]- Allergies, Adverse Reactions, Alerts No Known Allergies [...] opioid drug., 162, cm, 01/17/21 16:16:00 EST, Hesaul... Start Date: 01/18/21 Stop Date: 09/15/21 Status: Ordered Prenatabs Rx oral tablet 1 tablet, By Mouth, Daily, # 90 tablet, 1 Refills, Maintenance, 03/30/21 17:23:00 EST, Tablet, [facility]/pharmacy #[id number], Partial fill upon patient [...]
--- OUTSIDE RECORDS SUMMARY | 2022-07-06 21:16 | XMS_ITS | Continuity of Care Document ---
Author Name Unknown Organization [facility] Address [address] [place] [address]- Care Team Providers Care Grand Jury Deputy Sheriff Name Role Phone Not on Staff, PCP Primary Care Physician Unavail able Encounter [facility] [place](s[place] 03/19/21 - 04/20/[address] [address]- Attending Physician: Not on Staff, Attending MD Allergies, Adverse Reactions, Alerts No Known Allergies [...] EST, He... Start Date: 01/17/21 Status: Ordered ferrous sulfate 325 mg oral [...] 1 Refills, Maintenance, 03/30/21 17:23:00 EST, Tablet, [id number], Partial fill upon [...] Active (Confirmed) Active Request for sterilization(Confirmed) Active UTI in (Confirmed) Active Social History Social History Type Response Smoking Status Never smoker; Tobacc o user in household: No entered on: 08/25/17 Sex Female
--- OUTSIDE RECORDS SUMMARY | 2022-07-06 21:16 | XMS_ITS | Continuity of Care Document ---
Author Name Unknown Organization [facility] Address [address] [place] [address]- Care Team Providers Care Manager Wound Care Name Role Phone Not on Staff, PCP Primary Care Physician Unavail able Encounter [facility] [place] Date(s): 01/17/21 - 02/24/[address] [address]- Attending Physician: Not on Staff, Attending MD Allergies, Adverse Reactions, Alerts Substance Reaction Severity Status NKA Active Medications aspirin 81 mg oral delayed release [...] tablet, 3 Refills, Maintenance, 01/17/21 17:20:00 EST, [id number], Partial fill upon patient request if the prescription is for a schedule II opioid drug., 1 tablet By Mouth Daily, 162, cm, 01/17/21 16:16:00 EST... Start Date: 01/17/21 Status: Ordered Problem List Condition Effective Dates Status Health Status Inform ant Obese class II(Confirmed) Active PCP (phencyclidine) abuse(Confirmed) Active Social History Social History Type Response Smoking Status Never smoker; Tobacc o user in household: No entered on: 08/25/17 Sex
--- OUTSIDE RECORDS SUMMARY | 2022-07-06 21:16 | XMS_ITS | Continuity of Care Document ---
Author Name Unknown Organization [facility] Address [address] [place] [phone]- Care Team Providers Care Burling And Joining Supervisor Name Role Phone Not on Staff, PCP Primary Care Physician Unavail able Encounter [facility] [place] Date(s): 04/24/21 - 05/24/[address] [address]- Allergies, Adverse Reactions, Alerts No Known Allergies [...] opioid drug., 162, cm, 01/17/21 16:16:00 EST, Joseph... Start Date: 01/18/21 Stop Date: 09/15/21 Status: Ordered Prenatabs Rx oral tablet 1 tablet, By Mouth, Daily, # 90 tablet, 1 Refills, Maintenance, 03/30/21 17:23:00 EST, Tablet, [facility]/pharmacy #[id number], Partial fill upon patient request [...]
--- OUTSIDE RECORDS SUMMARY | 2022-07-06 21:16 | XMS_ITS | Continuity of Care Document ---
Author Name Unknown Organization [facility] Address [address] [place] [phone]- Care Team Providers Care Cost Consultant Name Role Phone Not on Staff, PCP Primary Care Physician Unavail able Encounter [facility] [place] Date(s): 01/05/21 - 02/04/[address] [address]- Allergies, Adverse Reactions, Alerts Substance Reaction Severity Status NKA Active Medications aspirin 81 mg oral delayed release tablet 2 tablet = 162 mg, By Mouth, Daily, # 120 tablet, 4 Refills, Maintenance, 01/17/21 16:47:00 EST, CRTablet, [facility]/pharmacy #[id number], Partial fill upon patient [...]
--- OUTSIDE RECORDS SUMMARY | 2022-07-06 21:16 | XMS_ITS | Continuity of Care Document ---
Author Name Unknown Organization [facility] Address [address] [place] [address]- Care Team Providers Care Slasher Machine Operator Name Role Phone Not on Staff, PCP Primary Care Physician Unavail able Encounter [facility] Date(s): 06/29/21 - 07/29/[address] [address]- Allergies, Adverse Reactions, Alerts No Known Allergies [...] 1 Refills, Maintenance, 03/30/21 17:23:00 EST, Tablet, [facility]/pharmacy #[id number], Partial fill upon patient request [...]
--- OUTSIDE RECORDS SUMMARY | 2022-07-06 21:16 | XMS_ITS | Continuity of Care Document ---
Author Name Unknown Organization [facility] Address [address] [place] [phone]- Care Team Providers Care Stripping Shovel Oiler Name Role Phone Not on Staff, PCP Primary Care Physician Unavail able Encounter [facility] [place] Date(s): 01/19/21 - 02/18/[address] [address]- Allergies, Adverse Reactions, Alerts Substance Reaction Severity Status NKA Active Medications aspirin 81 mg oral delayed release tablet 2 tablet = 162 mg, By Mouth, Daily, # 120 tablet, 4 Refills, Maintenance, 01/17/21 16:47:00 EST, CRTablet, [facility]/pharmacy #[id number], Partial fill upon patient request if [...]
--- OUTSIDE RECORDS SUMMARY | 2022-07-06 21:16 | XMS_ITS | Continuity of Care Document ---
Author Name Unknown Organization [facility] Address [address] [place] [address]- Care Team Providers Care Filling Carrier Name Role Phone Not on Staff, PCP Primary Care Physician Unavail able [place] [facility] [place] - 12/15/[address] [id number] Attending Physician: Not on Staff, Attending MD Allergies, Adverse Reactions, Alerts Substance Reaction Severity Status NKA Active Medications Ortho Micronor 0.35 mg oral tablet 1 tablet = 0.35 mg, By Mouth, Daily, # 90 tablet, 0 Refills, Maintenance, 08/26/17 14:37:45 EDT, Tablet Start Date: 08/26/17 Status: Ordered Problem List Condition Effective Dates Status Health Status Inform ant PCP (phencyclidine) abuse(Confirmed) Active Social History Social History Type Response Smoking Status Never smoker; Tobacc o user in household: No entered on: 08/25/17 Sex
--- OUTSIDE RECORDS SUMMARY | 2022-07-06 21:16 | XMS_ITS | Continuity of Care Document ---
Author Name Unknown Organization [facility] Address [address] [place] [address]- Care Team Providers Care Hydrator Name Role Phone Not on Staff, PCP Primary Care Physician Unavail able [place] [facility] [place]/19/[place] - 02/18/[address] [address]- Allergies, Adverse Reactions, Alerts Substance Reaction Severity [...]
--- OUTSIDE RECORDS SUMMARY | 2022-07-06 21:16 | XMS_ITS | Continuity of Care Document ---
Author Name Unknown Organization [facility] Address [address] [place] [address]- Care Team Providers Care Environmental Adviser Name Role Phone Not on Staff, PCP Primary Care Physician Unavail able Encounter [facility] [place] Date(s): 03/01/21 - 06/03/[address] [address]- Attending Physician: Not on Staff, Attending MD [...] tablet, 1 Refills, Maintenance, 01/18/21 14:30:00 EST, [facility]/pharmacy #[id number], Partial fill upon patient request if the prescription is for a schedule II opioid drug., 162, cm, 01/17/21 16:16:00 EST, [facility]... Start Date: 01/18/21 Stop Date: 09/15/21 Status: Ordered Prenatabs Rx oral tablet 1 tablet, By Mouth, Daily, # 90 tablet, 1 Refills, Maintenance, 03/30/21 17:23:00 EST, Tablet, [facility]/pharmacy #[id number], Partial fill upon patient request if [...]
--- OUTSIDE RECORDS SUMMARY | 2022-07-06 21:16 | XMS_ITS | Continuity of Care Document ---
Author Name Unknown Organization [facility] Address [address] [place] [address]- Care Team Providers Care Wet Pour Supervisor Name Role Phone Not on Staff, PCP Primary Care Physician Unavail able [place] [facility] [place] - 02/18/[address] [address]- Allergies, Adverse Reactions, Alerts Substance Reaction Severity Status NKA Active Medications aspirin 81 mg oral delayed release tablet 2 tablet = 162 mg, By Mouth, Daily, # 120 tablet, 4 Refills, Maintenance, 01/17/21 16:47:00 EST, CRTablet, [facility]/pharmacy #[id number], Partial fill upon patient [...]
--- OUTSIDE RECORDS SUMMARY | 2022-07-06 21:16 | XMS_ITS | Continuity of Care Document ---
Author Name Unknown Organization [facility] Address Unknown Care Team Providers Care Telemarketing Agent Name Role Phone Not on Staff, PCP Primary Care Physician Unavail able [place] [facility] [place](s): 01/12/21 - 02/11/21 [facility] Allergies, Adverse Reactions, Alerts Substance Reaction Severity [...]
--- OUTSIDE RECORDS SUMMARY | 2022-07-06 21:16 | XMS_ITS | Continuity of Care Document ---
Author Name Unknown Organization [facility] Address [address] [place] [address]- Care Team Providers Care Accessories Repairer Name Role Phone Not on Staff, PCP Primary Care Physician Unavail able Encounter [facility] [place] Date(s): 10/11/20 - 12/03/[address] [address] Attending Physician: Not on Staff, Attending MD [...]
--- OUTSIDE RECORDS SUMMARY | 2022-07-06 21:16 | XMS_ITS | Continuity of Care Document ---
Author Name Unknown Organization [facility] Address [address] [place] [address]- Care Team Providers Care Entry Level Electrician Name Role Phone Not on Staff, PCP Primary Care Physician Unavail able [place] [facility] [place] 06/20/22 [facility] [address] [place] [address]- Allergies, Adverse Reactions, Alerts No Known Allergies Immunizations Given and Recorded Vaccine Date Status Refusal Reason tetanus/diphtheria/pertussis, acel(Tdap) 03/01/21 Given influenza virus vaccine, inactivated 03/01/21 Give n SARS-CoV-2 (COVID-19) mRNA BNT-162b2 vac 01/18/21 Recorded SARS-CoV-2 (COVID-19) mRNA BNT-162b2 vac 10/31/20 Recorded Medications aspirin 81 mg oral delayed release [...] tablet, 1 Refills, Maintenance, 01/18/21 14:30:00 EST, [facility]/pharmacy #[id number], Partial fill upon patient request if the prescription is for a schedule II opioid drug., 162, cm, 01/17/21 16:16:00 EST, [facility]... Start Date: 01/18/21 Stop Date: 09/15/21 Status: Ordered Multivitamins with Folic Acid 1 mg oral tablet 1 tablet, By Mouth, Daily, # 90 tablet, 2 Refills, Maintenance, 05/20/22 10:40:00 EDT, Tablet, [facility]/pharmacy #[id number], Partial fill upon patient request if the prescription is for a schedule II opioid drug., 1 tablet By Mouth Daily, 160, cm, 05/20/22 10:3... Start Date: 05/20/22 Status: Ordered Problem List Condition Confirmation Course Effective Dates Status H ealth Status Informant Grand multiparity Confirmed Active History of depression Confirmed Active History of drug use Confirmed Active History of precipitous delivery Confirmed Active Insufficient care Confirmed Active AMA (advanced maternal age) multigravida 35+ Confirmed Active Obese class I Confirmed Active Obese class II Confirmed Active Obesity in Confirmed Active PCP (phencyclidine) abuse Confirmed Active Phencyclidine (PCP) use disorder, moderate Confirmed Active Confirmed Active Request for sterilization Confirmed Active Social History Social History Type Response Smoking Status Never smoker; Tobacc o user in household: No entered on: 08/25/17 Sex Female Patient Care team information Care Team Personnel Name: Not on Staff, PCP Position: S Physician (General Medicine) Member Role: PCP Care Team Related Persons Name: RANDOLPH FERNÁNDEZ Address: home [address] [place] [address] Name: KENA MONTEIRO Name: SAROJ MONTEIRO Address: [employer] Address: home [address] [place] [address] Name: SHEA MONTEIRO
--- OUTSIDE RECORDS SUMMARY | 2022-07-06 21:16 | XMS_ITS | Continuity of Care Document ---
Author Name Unknown Organization [facility] Address [address] [place] [address]- Care Team Providers Care Ballpoint Pens Assembler Name Role Phone Not on Staff, PCP Primary Care Physician Unavail able [place] [facility] [place] - 03/02/[address] [address] Allergies, Adverse Reactions, Alerts Substance Reaction Severity Status NKA Active Immunizations Given and Recorded Vaccine Date Status [...] Date: 01/18/21 Stop Date: 09/15/21 Status: Ordered metroNIDAZOLE 500 mg oral tablet 1 tablet = 500 mg, By Mouth, Every 12 hours, for 7 days, # 14 tablet, 0 Refills, Acute 03/08/21 15:13:00 EST, 03/01/21 15:13:00 EST, Tablet, [facility]/pharmacy #[id number], Partial fill upon patient request if the prescription is for a schedule II opioid drug., 1... Start Date: 03/01/21 Stop Date: 03/08/21 Status: Ordered PNV oral tablet 1 tablet, [...] 0 Refills, Maintenance, 03/01/21 15:35:00 EST, Tablet, [facility]/pharmacy [id number], Partial fill upon [...]
--- OUTSIDE RECORDS SUMMARY | 2022-07-06 21:16 | XMS_ITS | Continuity of Care Document ---
Author Name Unknown Organization [facility] Address [address] [place] [address]- Care Team Providers Care Director Of Coding Name Role Phone Not on Staff, PCP Primary Care Physician Unavail able [place] [facility] [place] - 07/15/[address] [address]- Attending Physician: Destiny Daigle Admitting Physician: Destiny Daigle Referring Physician: AdmtrDestiny Allergies, Adverse Reactions, Alerts No Known Allergies [...] tablet, 1 Refills, Maintenance, 01/18/21 14:30:00 EST, [facility]/pharmacy #[id number], Partial fill upon patient request if the prescription is for a schedule II opioid drug., 162, cm, 01/17/21 16:16:00 EST, [facility]ig... Start Date: 01/18/21 Stop Date: 09/15/21 Status: Ordered Prenatabs Rx oral tablet 1 tablet, By Mouth, Daily, # 90 tablet, 1 Refills, Maintenance, 03/30/21 17:23:00 EST, Tablet, [facility]/pharmacy #[id number], Partial fill upon patient request [...]
--- OUTSIDE RECORDS SUMMARY | 2022-07-06 21:16 | XMS_ITS | Continuity of Care Document ---
Author Name Unknown Organization [facility] Address [address] [place] [address]- Care Team Providers Care Perinatal Social Worker Name Role Phone Not on Staff, PCP Primary Care Physician Unavail able [place] [facility] [place] - 02/16/21 [facility] [address] [place] [address] Attending Physician: Destiny Daigle Admitting Physician: Destiny Daigle Referring Physician: [id number] Allergies, Adverse Reactions, Alerts Substance Reaction Severity [...]
--- OUTSIDE RECORDS SUMMARY | 2022-07-06 21:16 | XMS_ITS | Continuity of Care Document ---
Author Name Unknown Organization [facility] Address [address] [place] [address]- Care Team Providers Care Transitional Nurse Name Role Phone Not on Staff, PCP Primary Care Physician Unavail able Encounter [facility] Date(s): 05/08/21 - 06/07/[address] [address]- Allergies, Adverse Reactions, Alerts No Known Allergies [...] 1 Refills, Maintenance, 03/30/21 17:23:00 EST, Tablet, [facility]/pharmacy #[id number], Partial fill upon patient request if [...]
--- OUTSIDE RECORDS SUMMARY | 2022-07-06 21:16 | XMS_ITS | Continuity of Care Document ---
Author Name Unknown Organization [facility] Address [address] [place] [address]- Care Team Providers Care Catering Server Name Role Phone Not on Staff, PCP Primary Care Physician Unavail able Encounter [facility] [place] Date(s): 10/09/20 - 11/08/[address] [address] Allergies, Adverse Reactions, Alerts Substance Reaction [...]
--- OUTSIDE RECORDS SUMMARY | 2022-07-06 21:16 | XMS_ITS | Continuity of Care Document ---
Author Name Unknown Organization [facility] Address [address] [place] [address]- Care Team Providers Care Town Clerk Name Role Phone Not on Staff, PCP Primary Care Physician Unavail able En[place] [facility] [place] Date(s): 01/25/22 - 01/25/[address] [address]- Encounter Diagnosis Unusual change in behavior(Final) - 01/25/22 Behavior concern(Final) - 01/25/22 Discharge Disposition: A-D/C Home Attending Physician: Martina Snyder DO Admitting Physician: Martina Snyder DO Referring Physician: Not on Staff, Referring MD Allergies, Adverse Reactions, Alerts No Known [...] tablet, 1 Refills, Maintenance, 01/18/21 14:30:00 EST, [facility]/pharmacy #[id number], Partial fill upon patient request if the prescription is for a schedule II opioid drug., 162, cm, 01/17/21 16:16:00 EST, Heig... Start Date: 01/18/21 Stop Date: 09/15/21 Status: Ordered Prenatabs Rx oral tablet 1 tablet, By Mouth, Daily, # 90 tablet, 1 Refills, Maintenance, 03/30/21 17:23:00 EST, Tablet, [facility]/pharmacy #[id number], Partial fill upon patient request if the prescription is for a schedule II opioid drug., 1 tablet By Mouth Daily, 162, cm, 03/30/21 15:5... Start Date: 03/30/21 Status: Ordered Problem List Condition Confirmation Course Effective Dates Status H ealth Status Informant Gonorrhea Confirmed Active Grand multiparity Confirmed Active History of depression Confirmed Active History of drug use Confirmed Active History of precipitous delivery Confirmed Active Trichomonosis Confirmed Active Insufficient care Confirmed Active AMA (advanced maternal age) multigravida 35+ Confirmed Active Obese class II Confirmed Active Obesity in Confirmed Active PCP (phencyclidine) abuse Confirmed Active Phencyclidine (PCP) use disorder, moderate Confirmed Active Confirmed Active Request for sterilization Confirmed Active Vital Signs Most recent to oldest [Reference Range]: 1 Oxygen Saturation [94-100 %] 99 % (01/25/22 4:43 PM) Pulse Rate [55-90 bpm] 120 bpm *H* (01/25/22 4:43 PM) Blood Pressure [90-138/55-84 mm Hg] 166/ 98mm Hg *H* (01/25/22 4:43 PM) Respiratory Rate [16-30 br/min] 18 br/mi n (01/25/22 4:43 PM) Temperature [96.8-100.4 DegF] 99.5 DegF (01/25/22 4:43 PM) Mode of Delivery (Oxygen) Room air (01/25/22 4:43 PM) Blood pressure sites Arm, left (01/25/22 4:43 PM) Temperature Route Oral (01/25/22 4:43 PM) Social History Social History Type Response Smoking Status Never smoker; Tobacc o user in household: No entered on: 08/25/17 Sex Female Patient Care team information Care Team Personnel Name: Not on Staff, PCP Position: [facility] Physician (General Medicine) Member Role: PCP Name: Zuleima Enamorado DO Position: [facility] Resident Member Role: ED Resident Address: Address: [address] [place] [address] Name: Erin Vasquez Position: [facility] ED TA [facility] Name: Lawson Abarca RN Position: [facility] ED RN W/OE and Tasks Member Role: Patient Care Provider Name: Martina Snyder DO Position: [facility] ED Medicine MD Member Role: Admitting Physician Address: Address: [address] [place] [address] Care Team Related Persons Name: RANDOLPH FERNÁNDEZ Address: home [address] [place] [address] Name: KENA MONTEIRO Name: SAROJ MONTEIRO Address: [employer] Address: home [address] [place] [address]
--- OUTSIDE RECORDS SUMMARY | 2022-07-06 21:16 | XMS_ITS | Continuity of Care Document ---
Author Name Unknown Organization [facility] Address [address] [place] [address]- Care Team Providers Care Health Coach Name Role Phone Not on Staff, PCP Primary Care Physician Unavail able Encounter [facility] Date(s): 05/13/22 - 06/12/[address] [place] [address] [address]- Allergies, Adverse Reactions, Alerts No Known Allergies [...] tablet, 1 Refills, Maintenance, 01/18/21 14:30:00 EST, [facility]/pharmacy #[id number], Partial fill upon patient request if the prescription is for a schedule II opioid drug., 162, cm, 01/17/21 16:16:00 EST, [place]... Start Date: 01/18/21 Stop Date: 09/15/21 Status: Ordered Multivitamins with Folic Acid 1 mg oral tablet 1 tablet, By Mouth, Daily, # 90 tablet, 2 Refills, Maintenance, 05/20/22 10:40:00 EDT, Tablet, [facility]/pharmacy #[id number], Partial fill upon patient request [...] Persons Name: RANDOLPH FERNÁNDEZ Address: [address] [place] [address] Name: KENA MONTEIRO Name: SAROJ MONTEIRO Address: [employer] Address: home [address] [address] Name: SHEA MONTEIRO
--- OUTSIDE RECORDS SUMMARY | 2022-07-06 21:16 | XMS_ITS | Continuity of Care Document ---
Author Name Unknown Organization [facility] Address [address] [place] [address]- Care Team Providers Care Bridge Manager Name Role Phone Not on Staff, PCP Primary Care Physician Unavail able En[place] [facility] [place] Date(s): 05/10/21 - 07/15/[address] [address]- Attending Physician: Not on Staff, Attending MD [...] 1 Refills, Maintenance, 01/18/21 14:30:00 EST, [facility]/pharmacy #[id number], Partial fill upon patient request if the prescription is for a schedule II opioid drug., 162, cm, 01/17/21 16:16:00 EST, Heig... Start Date: 01/18/21 Stop Date: 09/15/21 Status: Ordered Prenatabs Rx oral tablet 1 tablet, By Mouth, Daily, # 90 tablet, 1 Refills, Maintenance, 03/30/21 17:23:00 EST, Tablet, [facility]/pharmacy #[id number], Partial fill upon patient request if [...]
--- OUTSIDE RECORDS SUMMARY | 2022-07-06 21:16 | XMS_ITS | Continuity of Care Document ---
Author Name Unknown Organization [facility] Address [address] [place] [address]- Care Team Providers Care Kennel Hand Name Role Phone Not on Staff, PCP Primary Care Physician Unavail able [place] [facility] [place] 12/20/20 - 01/19/[address] [address]- Allergies, Adverse Reactions, Alerts Substance Reaction Severity Status NKA Active Medications aspirin 81 mg oral delayed release tablet 2 tablet = 162 mg, By Mouth, Daily, # 120 tablet, 4 Refills, Maintenance, 01/17/21 16:47:00 EST, CRTablet, [facility]/pharmacy #[id number], Partial fill upon patient request if [...]
--- OUTSIDE RECORDS SUMMARY | 2022-07-06 21:16 | XMS_ITS | Continuity of Care Document ---
Author Name Unknown Organization [facility] Address [address] [place] [address]- Care Team Providers Care Bolt Machine Operator Name Role Phone Not on Staff, PCP Primary Care Physician Unavail able [place] [facility] [place] 05/10/21 - 06/09/[address] [address]- Allergies, Adverse Reactions, Alerts No Known Allergies [...]
--- OUTSIDE RECORDS SUMMARY | 2022-07-06 21:16 | XMS_ITS | Continuity of Care Document ---
Author Name Unknown Organization [facility] Address [address] [place] [address]- Care Team Providers Care Package Checker Name Role Phone Not on Staff, PCP Primary Care Physician Unavail able [place] [facility] [place](s): 04/28/21 - 06/03/[address] [address]- Attending Physician: Wen Roper MD Admitting Physician: Wen Roper MD Referring Physician: Zaira NAYLOR, RN [facility], [facility] Allergies, Adverse Reactions, Alerts No Known Allergies [...] tablet, 1 Refills, Maintenance, 01/18/21 14:30:00 EST, [facility]/pharmacy #[id number], Partial fill upon patient request if the prescription is for a schedule II opioid drug., 162, cm, 01/17/21 16:16:00 EST, Heig... Start Date: 01/18/21 Stop Date: 09/15/21 Status: Ordered Prenatabs Rx oral tablet 1 tablet, By Mouth, Daily, # 90 tablet, 1 Refills, Maintenance, 03/30/21 17:23:00 EST, Tablet, [facility]/pharmacy #[id number], Partial fill upon patient [...]
--- OUTSIDE RECORDS SUMMARY | 2022-07-06 21:16 | XMS_ITS | Continuity of Care Document ---
Author Name Unknown Organization [facility] Address [address] [place] [address]- Care Team Providers Care Machining And Assembly Supervisor Name Role Phone Not on Staff, PCP Primary Care Physician Unavail able [place] [facility] [place]19[place] - 02/18/[address] [address]- Allergies, Adverse Reactions, Alerts Substance Reaction Severity Status NKA Active Medications aspirin 81 mg oral delayed release tablet 2 tablet = 162 mg, By Mouth, Daily, # 120 tablet, 4 Refills, Maintenance, 01/17/21 16:47:00 EST, CRTablet, [facility]/pharmacy #[id number], Partial fill upon patient [...]
--- OUTSIDE RECORDS SUMMARY | 2022-07-06 21:16 | XMS_ITS | Continuity of Care Document ---
Author Name Unknown Organization [facility] Address [address] [place] [address]- Care Team Providers Care Loss Prevention Lead Name Role Phone Not on Staff, PCP Primary Care Physician Unavail able Encounter [facility] [place] Date(s): 03/01/21 - 05/13/[address] [address]- Attending Physician: Not on Staff, Attending MD [...] tablet, 1 Refills, Maintenance, 01/18/21 14:30:00 EST, [facility]/pharmacy #[id number], Partial fill upon patient request if the prescription is for a schedule II opioid drug., 162, cm, 01/17/21 16:16:00 EST, Heig... Start Date: 01/18/21 Stop Date: 09/15/21 Status: Ordered Prenatabs Rx oral tablet 1 tablet, By Mouth, Daily, # 90 tablet, 1 Refills, Maintenance, 03/30/21 17:23:00 EST, Tablet, [facility]/pharmacy #[id number], Partial fill upon patient request [...]
--- OUTSIDE RECORDS SUMMARY | 2022-07-06 21:16 | XMS_ITS | Continuity of Care Document ---
Author Name Unknown Organization [facility] Address [address] [place] [address]- Care Team Providers Care Technical Services Rep Name Role Phone Not on Staff, PCP Primary Care Physician Unavail able Encounter [facility] [place] Date(s): 05/05/21 - 06/10/[address] [address]- Attending Physician: Wen Roper MD Admitting Physician: Wen Roper MD Referring Physician: Zaira NAYLOR, TITLE CURATOR, [facility] Allergies, Adverse Reactions, Alerts No [...] tablet, 1 Refills, Maintenance, 01/18/21 14:30:00 EST, [facility]/pharmacy #[id number], Partial fill upon patient request if the prescription is for a schedule II opioid drug., 162, cm, 01/17/21 16:16:00 EST, Heig... Start Date: 01/18/21 Stop Date: 09/15/21 Status: Ordered Prenatabs Rx oral tablet 1 tablet, By Mouth, Daily, # 90 tablet, 1 Refills, Maintenance, 03/30/21 17:23:00 EST, Tablet, [facility]/pharmacy #[id number], Partial fill upon patient request if [...]
--- OUTSIDE RECORDS SUMMARY | 2022-07-06 21:16 | XMS_ITS | Continuity of Care Document ---
Author Name Unknown [facility] Address Unknown Care Team Providers Care Rubber Press Tender Name Role Phone Not on Staff, PCP Primary Care Physician Unavail able [place] [facility] [place]/12/21 - 02/11/21 [facility] Allergies, Adverse Reactions, Alerts Substance Reaction [...]
--- OUTSIDE RECORDS SUMMARY | 2022-07-06 21:16 | XMS_ITS | Continuity of Care Document ---
Author Name Unknown Organization [facility] ter Address [address] [place] [id number]- Care Team Providers Care Fundraising Sale Representative Name Role Phone Not on Staff, PCP Primary Care Physician Unavail able [place] [facility] [place] - 05/11/[address] [address]- Discharge Disposition: A-D/C Home Attending Physician: Kobe Leslie MD Admitting Physician: Kobe Leslie MD Referring Physician: Kobe Leslie MD Allergies, Adverse Reactions, Alerts No Known Allergies Immunizations Given and Recorded Vaccine Date Status Refusal Reason tetanus/diphtheria/pertussis, acel(Tdap) 03/01/21 Given influenza virus vaccine, inactivated 03/01/21 Give n Medications Acetaminophen Tablet 650 mg, Tablet, By Mouth, Every 4 hours, PRN for Pain , Mild, (1-3), may give 325mg per patient preference and re-dose with 325mg within 4 hours, if needed. Patient should only receive a total of 650mg of Acetaminophen every 4 hours., Routine, 05/09... Start Date: 05/09/21 Stop Date: 05/11/21 Status: Discontinued aspirin 81 mg oral delayed release tablet 2 tablet = 162 mg, By Mouth, Daily, # 120 tablet, 4 Refills, Maintenance, 01/17/21 16:47:00 ESTInessa, [facility]/pharmacy #[id number], Partial fill upon patient request if the prescription is for a scheduleII opioid drug., 102, cm, 01/17/21 16:16:00 EST He... Start Date: 01/17/21 Status: Ordered Pina [...] Date: 01/18/21 Stop Date: 09/15/21 Status: Ordered Ibuprofen Tablet 800 mg, Tablet, By Mouth, Every 8 hours, PRN for Pain , Moderate, (4-6), may give 400mg per patientpreference and re-dose with 400mg within 8 hours if needed. Patient should only receive a total of 800mg of Ibuprofen every 8 hours., Routine, ... Start Date: 05/09/21 Stop Date: 05/11/21 Status: Discontinued Prenatabs Rx oral tablet 1 tablet, By [...] Active (Confirmed) Active Request for sterilization(Confirmed) Active Vital Signs Most recent to oldest [Reference Range]: 1 2 3 Height 160 cm (05/11/21 8:00 AM) 160 cm (05/11/21 12:07 AM) 160 cm (05/10/21 4:05 PM) Weight 99.1 kg (05/09/21 1:09 AM) 99.1 kg (05/08/21 6:35 PM) Oxygen Saturation [94-100 %] 100 % (05/11/21 12:07 AM) 98 % (05/10/21 4:05 PM) 100 % (05/10/21 8:02 AM) Pulse Rate [55-90 bpm] 58 bpm (05/11/21 8:00 AM) 86 bpm (05/11/21 12:07 AM) 75 bpm (05/10/21 4:05 PM) Body Mass Index [18.5-24.99] 38.71 *>HHI* (05/09/21 1:09 AM) 38.71 *>HHI* (05/08/21 6:35 PM) Blood Pressure [90-138/55-84 mm Hg] 121/79mm Hg (05/11/21 8:00 AM) 92/70mm Hg (05/11/21 12:07 AM) 114/69mm Hg (05/10/21 4:05 PM) Respiratory Rate [16-30 br/min] 20 br/min (05/11/21 1:01 PM) 20 br/min (05/11/21 1:01 PM) 20 br/min (05/11/21 8:00 AM) Temperature [96.8-100.4 DegF] 98.4 DegF (05/11/21 8:00 AM) 98.7 DegF (05/11/21 12:07 AM) 98.7 DegF (05/10/21 4:05 PM) Mode of Delivery (Oxygen) Room air (05/11/21 12:07 AM) Room air (05/10/21 4:05 PM) Room air (05/10/21 8:02 AM) Blood pressure sites Arm, right (05/11/21 12:07 AM) Arm, left (05/10/21 4:05 PM) Arm, left (05/10/21 8:02 AM) Temperature Route Oral (05/11/21 8:00 AM) Oral (05/11/21 12:07 AM) Oral (05/10/21 4:05 PM) Dry Weight 99.1 kg (05/09/21 1:09 AM) 99.1 kg (05/08/21 6:35 PM) Weight Obtained Via Standing scale (05/08/21 6:35 PM) Dry Weight Obtained Via Standing scale (05/08/21 6:35 PM) Social History Social History Type Response Smoking Status Never smoker; Tobacc o user in household: No entered on: 08/25/17 Sex Female
--- OUTSIDE RECORDS SUMMARY | 2022-07-06 21:16 | XMS_ITS | Continuity of Care Document ---
Author Name Unknown Organization [facility] Address Unknown Care Team Providers Care Soap Inspector Name Role Phone Not on Staff, PCP Primary Care Physician Unavail able Encounter [facility] [place] Date(s): 01/18/21 - [facility] Allergies, Adverse Reactions, Alerts Substance Reaction [...]
--- OUTSIDE RECORDS SUMMARY | 2022-07-06 21:17 | XMS_ITS | Continuity of Care Document ---
Author Name Unknown Organization [facility] Address [address] [place] [phone]- Care Team Providers Care Mat Machine Tender Name Role Phone Not on Staff, PCP Primary Care Physician Unavail able Encounter [facility] [place] Date(s): 01/17/21 - 04/15/[address] [address] Attending Physician: Not on Staff, Attending [...]
--- OUTSIDE RECORDS SUMMARY | 2022-07-06 21:17 | XMS_ITS | Continuity of Care Document ---
Author Name Unknown Organization [facility] Address [address] [place] [address]- Care Team Providers Care Universal Branch Consultant Name Role Phone Not on Staff, PCP Primary Care Physician Unavail able [place] [facility] [place] 11/15/20 - 12/15/[address] [address] Attending Physician: Destiny Daigle Admitting Physician: Destiny Daigle Referring Physician: AdmtrDestiny Allergies, Adverse Reactions, Alerts Substance Reaction Severity [...]
--- OUTSIDE RECORDS SUMMARY | 2022-07-06 21:17 | XMS_ITS | Continuity of Care Document ---
Author Name Unknown Organization [facility] Address [address] [place] [address]- Care Team Providers Care Tent Assembler Name Role Phone Not on Staff, PCP Primary Care Physician Unavail able [place] [facility] [place] - 02/23/[address] [address]- Allergies, Adverse Reactions, Alerts Substance Reaction Severity Status NKA Active Medications aspirin 81 mg oral delayed release tablet 2 tablet = 162 mg, By Mouth, Daily, # 120 tablet, 4 Refills, Maintenance, 01/17/21 16:47:00 EST, CRTablet, [facility]/pharmacy #[id number], Partial fill upon patient request if [...]
[2022-07-06 21:56] VITALS: BP 100/63; PULSE 65; RESP 16; O2SAT 96
[2022-07-06 22:43] LABS: Appearance Urine Clear; Color Urine Yellow; Glucose Urine UA Negative (Negative); Leukocyte Esterase Urine Negative (Negative); Nitrite Urine Negative (Negative); PH 6.5 (5.0-9.0); UMIC TRIGGER UACC YES; Urine Blood Trace (Negative); Urine Ketones Negative (Negative); Urine Protein Negative (Neg-Trace)
[2022-07-06] MEDS: Acetaminophen 325 MG TABLET 650 MG PO (22:44)
[2022-07-06 22:50] LABS: Bacteria Urine None Seen (None Seen); Hyaline Casts Urine 0-2 /LPF (0-2); RBC Urine 0-2 /HPF (0-2); Squamous Epithelial Cell Urine 0-2 /HPF (0-2); WBC Urine 0-5 /HPF (0-5)
== END 2022-07-06 23:18 | disposition home or self-care (01) ==
PROVIDERS: Physician Assistant Medical; Emergency Provider Emergency Medicine
DX: O26.891 Other specified pregnancy related conditions, first trimester (principal); R10.9 Unspecified abdominal pain; Z3A.13 13 weeks gestation of pregnancy
CPT/HCPCS: 36415; 76801; 80048; 80076; 81001; 83690; 83735; 84702; 85025; 99284

== ENCOUNTER 2024-07-10 17:01 | Emergency (ER) | payer MEDICAID, SELFPAY ==
[2024-07-10 17:09] VITALS: BP 133/70; PULSE 120; RESP 18; TEMP 37.1; O2SAT 96; BMI 38.6
--- OUTSIDE RECORDS SUMMARY | 2024-07-10 17:37 | XMS_ITS | Patient Health Record ---
Author Organization [facility] Address [address] [place], [place] [id number] Care Team Providers Care Consulting Application Engineer Name Role Phone [facility] Primary Care Provider Genny vailable Reason For Referral No Information Plan Of Treatment No Information
--- OUTSIDE RECORDS SUMMARY | 2024-07-10 17:37 | XMS_ITS | Clinical Summary ---
Author Organization [facility] Address [address] [place] [address] Care Team Providers Care Production Estimator Name Role Phone Unavailable Primary Care Provider Unavailabl e Social History Tobacco Use Types Packs/Day Years Used Date Smoking Tobacco: Never Assessed Comments Unknown Sex and Gender Information Value Date Recorded Sex Assigned at Not on file Legal Sex Female 10:26 AM EST Gender Identity Not on file Sexual Orientation Not on file Plan of Treatment Health Maintenance Due Date Last Done Comments DTaP,Tdap,and Td Vaccines (1 - Tdap) 2005 Hepatitis B Vaccines (1 of 3 - 19+ 3-dose series) 2005 Cervical Cancer Screening: P ap Smear 2007 COVID-19 Vaccine (2023-2 5 season) 2023 Influenza Vaccine (Season Ended) 2024 HIB Vaccines Aged Out No longer eligi ble based on patient's age to complete this topic HPV Vaccines Aged Out No longer eligi ble based on patient's age to complete this topic Hepatitis A Vaccines Aged Out No long er eligible based on patient's age to complete this topic IPV Vaccines Aged Out No longer eligi ble based on patient's age to complete this topic MMR Vaccines Aged Out No longer eligi ble based on patient's age to complete this topic Meningococcal ACWY Vaccine Aged Out N o longer eligible based on patient's age to complete this topic Meningococcal B Vaccine Aged Out No l onger eligible based on patient's age to complete this topic Pneumococcal Vaccine: Pediat rics (0 to 5 Years) and At-Risk Patients (6 to 64 Years) Aged Out No longer eligible b ased on patient's age to complete this topic RSV Immunization Patients Un kendra 20 months Aged Out No longer eligible b ased on patient's age to complete this topic Varicella Vaccines Aged Out No longer eligible based on patient's age to complete this topic
--- OUTSIDE RECORDS SUMMARY | 2024-07-10 17:37 | XMS_ITS ---
Author Organization [facility] Address [address] [place], [place] [id number] Care Team Providers Care Wildlife Photographer Name Role Phone [facility] Primary Care Provider Genny Mathew Howard Unavailable [phone] Encounters Encounter Location Date Provider Diagnosis [facility] [address] [place] [phone] 01/28/2023 Howard Mathew Plan Of Treatment No Information Progress Notes * Dante FERNÁNDEZOB: 6 (39 yo F)Acc No.[id number]:01/28/2023 Case Management Patient:?India FERNÁNDEZ Provider:Gerri Yeboah :1985???Age:37 Y???Sex:Female D ate:01/28/2023 Address:[address], [facility] Pcp:[facility] Subjective: * Chief Complaints: * ??? * Medical History:? Objective: Assessment: Plan: * Treatment: * Images: Billing Information: * Visit Code:? * Procedure Codes:? Care Plan Details* * Electronic signature of Howard Mathew on 07/10/2024 at 05:36 PM EDT Sign off status: Pending * Provider:Gerri Yeboah Date:?01/28/2023 Generated for Adrian bernal/Lyndsay/eTransmitting on:?07/10/2024 05:36 PM EDT
--- NOTE | 2024-07-10 18:05 | ED.GENADULT ---
HPI - General Adult General Chief complaint: General Medical Stated complaint: pcp use found somnolent in her car by ems Time Seen by Provider: 07/10/24 17:17 Source: patient, EMS, RN notes reviewed and old records reviewed Mode of arrival: EMS History of Present Illness ED Provider: Kristyn Bradley PA-C HPI narrative: 39-year-old female with no significant medical history presenting to the ED via EMS s/p being found somnolent in car and 911 was called by bystanders. Per EMS others on scene admitted to using PCP however patient denied this. Patient states she was tired and crying in her vehicle as her mom is currently fighting cancer. Denies illicit substance or EtOH use. Denies SI/HI. No medications/Narcan given by EMS. Per EMS patient was awake and alert upon their arrival. Patient denies injury/trauma or fall Related Data Previous Rx's ?Medication ?Instructions ?Recorded acetaminophen 500 mg capsule 500 mg PO QID PRN fever or pain 07/06/22 #30 caps Allergies Allergy/AdvReac Type Severity Reaction Status Date / Time No Known Allergies Allergy Verified 07/10/24 17:09 [No Known Allergies*] Review of Systems Review of Systems: Yes all other systems are reviewed and are negative Constitutional: Constitutional: Reports as per [facility] Past Medical History Attestation statement: The following information was validated with the patient. Source: old records reviewed Medical History Grand multiparity with current AMA (advanced maternal age) multigravida 35+ Multiparous Family History Family History Mother Diabetes mellitus Father No problems noted. Maternal Grandmother No problems noted. Paternal Grandfather No problems noted. Paternal Grandmother No problems noted. Paternal Grandfather No problems noted. Social History Social History Household Members Other:: Self Housing: Apartment Are you a primary respiratory care faculty to a significant other at home: No Do you presently have visiting nurse or other home services: No Alcohol intake: never Patient Tobacco Use Status: Former Tobacco user Agree to transfusion: Yes Advance Directives: No Advance Directives Information Provided: No service: No Current occupational status: unemployed Physical Exam ED Vital Signs: Vital Signs - 24 hr 07/10/24 17:09 Temperature 98.8 F Pulse Rate 120 H Respiratory Rate 18 Blood Pressure 133/70 Pulse Oximetry 96 Oxygen Delivery Method Room Air BMI result Body Mass Index 38.6 Const General: cooperative, healthy appearing and no acute distress Orientation/consciousness: patient oriented x3 Limitations: no limitations HENMT Head: Yes normal to inspection and Yes atraumatic Ears: hearing grossly normal bilaterally General nose exam: Normal external nose present Face and sinus: Yes normal facial exam Eyes General: appearance normal, both eyes and all related structures EOM: EOMs intact bilaterally Neck Neck: Yes normal visual inspection and Yes no meningeal signs Resp Effort & Inspection: normal respiratory effort and no respiratory distress Cardio Rate: regular rate Skin Rashes: no rashes Wounds: no wounds Neuro General: patient oriented x3, gait normal, tone normal, moves all extremities, no meningeal signs, no focal motor deficits and CN's II-XI intact bilaterally Cranial nerves: Yes CN's II-XII intact bilaterally and Yes Bilaterally intact EOM present Cognition (Neuro): normal cognition Gait exam (Neuro): Normal gait present Extrem General: Yes normal to inspection Psych Thought content: suicidality and no homicidality Course Course Course Narrative: -0--patient has been observed in our ED for over 1 hour, has remained awake and alert, acting appropriate. Safe for discharge home at this time Results discussed with patient including worrisome signs and symptoms and strict return precautions, and when to return to the emergency department. They verbalized understanding and feel safe for discharge at this time. Medical Decision Making Medical Decision Making MDM Narrative: 39-year-old female with no significant medical history presenting to the ED via EMS s/p being found somnolent in car and 911 was called by bystanders. On exam initially tachycardic, NAD, nontoxic appearing, awake and alert, acting appropriate. Sitting in chair at bedside. No somnolence or lethargy appreciated. Denies SI/HI. No evidence of trauma. Concern for possible substance use/?OD Plan: Tox screen, observe and re-evaluate Please refer to course for remaining clinical decision making, interpretation of labs/imaging results, and discussions with consultants and/or family members. Differential Diagnosis Differential Diagnoses: The differential diagnosis associated with the presentation includes As above Lab Data MDM Lab Attestation statement: I reviewed the patient's lab results. Independent Historian Clinical information obtained from an independent historian. History obtained from or confirmed by: EMS External Record Review External record reviewed: Inpatient record, Office record, Outpatient record, Prior outpatient labs, Prior outpatient radiology, Primary care record and Outside ED record Tests considered The following testing was considered but not selected: As above Prescription Management I considered prescription management with: Other Social Determinants Patient?s care significantly limited by Social Determinants of Health including: Other Social Determinant of Health Discharge Plan Discharge Clinical Impression: Well adult health check Patient Disposition: Home, Self-Care Instructions: Polysubstance Use Disorder (ED) Additional Instructions: If you have any thoughts of hurting herself or anyone else please return to the emergency department Avoid drug and alcohol use Follow up in primary care doctor Overdose You were seen in our Emergency Department for an overdose today. You received narcan in order to reverse the effects of overdose. Narcan only lasts about 45 min to 1 hour in the system. You may have been given narcan to take home with you today, please keep it near you if you are going to use again, so others can use it if needed.? The number one risk for fatal overdose is using alone? [employer] is a / hotline where you can be on the phone with someone while you use, and they can call for help if they suspect an overdose: [phone] Things to look out for when you leave include severe vomiting or diarrhea, headaches, muscle cramps, fever, coughing, chest pain, or if you feel so short of breath you cannot walk to the bathroom. Please seek care and return any time for worsening symptoms.? You may have been provided with safer injection?items, please take time to take care of YOU and your health. Use new supplies whenever possible to lessen the chances of infections and other illnesses.? If you need more supplies, please go [facility],? [address] [place], [place] you can call or text to coordinate delivery of safer supplies. If you decide you want to stop or cut down on how much you?re using, please call the numbers on the list provided to you or you can come to our outpatient Addiction Treatment office [facility] (M-F 9am-5p) [address] [place] [address], [address] [place]. [phone] Prescriptions: No Action acetaminophen 500 mg capsule 500 mg PO QID PRN (Reason: fever or pain) Qty: 30 0RF Referrals: [facility] [Outside] ED Physician,Generic [Emergency Provider] - Print Language: [place]se
[2024-07-10 18:17] VITALS: BP 128/93; PULSE 97; RESP 18; TEMP 37.1; O2SAT 97
== END 2024-07-10 18:19 | disposition home or self-care (01) ==
PROVIDERS: Emergency Provider Emergency Medicine
DX: R40.0 Somnolence (principal); R00.0 Tachycardia, unspecified; Z72.89 Other problems related to lifestyle; Z63.79 Other stressful life events affecting family and household
CPT/HCPCS: 99282; 99283